=== PATIENT | female | born 1990 | race Hispanic/Latino ===

== ENCOUNTER 2017-08-21 18:49 | Emergency (ER) | payer OTHER ==
[2017-08-21 19:55] VITALS: O2SAT 100
[2017-08-21] MEDS ORDERED: Lidocaine 1% Inj (20ml) IJ ONE (20:17)
[2017-08-21] MEDS ORDERED: Tdap Vaccine 0.5 ml Vial (10-64 yrs) IM ONE ×2 (20:17→21:07)
[2017-08-21] MEDS ORDERED: Lidocaine 1% Inj (20ml) ONE (20:23)
--- NOTE | 2017-08-21 20:39 | ED PDOC ---
HPI: General Adult Time Seen by Provider: 08/21/17 19:58 Chief Complaint (Nursing): Abnormal Skin Integrity Chief Complaint (Provider): Abnormal Skin Integrity History Per: Patient History/Exam Limitations: no limitations Onset/Duration Of Symptoms: Hrs (prior to arrival) Current Symptoms Are (Timing): Still Present Additional Complaint(s): 27 year old female presents to the ED with left middle finger laceration that occurred earlier today during work. Patient reports that she accidentally cut her finger on a broken bottle of vodka. She has no other medical complaints. Tetanus is not UTD. PMD: Dr. Talley Past Medical History Reviewed: Historical Data, Nursing Documentation, Vital Signs Vital Signs: Last Vital Signs Temp 98.8 F 08/21/17 19:52 Pulse 75 08/21/17 19:52 Resp 16 08/21/17 19:52 BP 128/82 08/21/17 19:52 Pulse Ox 100 08/21/17 21:02 - Medical History PMH: No Chronic Diseases - Surgical History Surgical History: No Surg Hx - Family History Family History: States: Unknown Family Hx - Allergies Allergies/Adverse Reactions: Allergies Allergy/AdvReac Type Severity Reaction Status Date / Time No Known Allergies Allergy Verified 08/21/17 19:55 Review of Systems ROS Statement: Except As Marked, All Systems Reviewed And Found Negative Musculoskeletal: Positive for: Hand Pain (left middle finger laceration) Physical Exam - Reviewed Nursing Documentation Reviewed: Yes Vital Signs Reviewed: Yes - Physical Exam Extremity: Positive for: Normal ROM (full ROM actively of 3rd left digit with no active bleeding), Other (1 cm superifical laceration on palmar surface of distal phalanx of left third digit) - ECG O2 Sat by Pulse Oximetry: 100 (RA) Pulse Ox Interpretation: Normal Medical Decision Making Medical Decision Making: Time: 20:17 Impression: left 3rd digit laceration Initial Plan: --Tetanus .5 ml IM --Lidocaine 1% 3 ml IJ Scribe Attestation: Documented by Debbie Hi, acting as a scribe for Syed Washburn PA-C Provider Scribe Attestation: All medical record entries made by the Scribe were at my direction and personally dictated by me. I have reviewed the chart and agree that the record accurately reflects my personal performance of the history, physical exam, medical decision making, and the department course for this patient. I have also personally directed, reviewed, and agree with the discharge instructions and disposition. Procedures - Time-Out Type of Procedure: Laceration repair Site of Procedure: L 3rd digit Correct Patient (with visual ID + MR# on ID Band): Yes Correct Procedure: Yes Correct Site Marked: Yes RADU/Tech: Maddison - Laceration/Wound Repair laceration repair Wound Length (cm): 1 Wound's Depth, Shape: superficial, linear Wound Explored: clean Irrigated w/ Saline (ccs): 500 Betadine Prep?: Yes Anesthesia: 1% Lidocaine Volume Anesthetic (ccs): 3 Wound Debrided: minimal Wound Repaired With: Sutures Suture Size/Type: 5:0, proline Number of Sutures: 3 Wound Complexity: Simple Sterile Dressing Applied?: Yes Splint Applied?: Yes Disposition - Clinical Impression Clinical Impression: Finger laceration - Patient ED Disposition Is Patient to be Admitted: No - Disposition Referrals: [facility] [Outside] Disposition: Routine/Home Disposition Time: 21:01 Condition: STABLE Additional Instructions: Suture removal in 7-10 days Return to ED immediately if symptoms worsen Instructions: Laceration Repair With Stitches (DC) Forms: Boyd Plunkett (Persian) Print Language: SINHALA
[2017-08-21 22:49] VITALS: BP 110/70; PULSE 76; RESP 18; TEMP 98
== END 2017-08-21 22:48 | disposition home or self-care (01) ==
LOC: H.ER 18:49
DX: S61.213A Laceration without foreign body of left middle finger without damage to nail, initial encounter (principal); W25.XXXA Contact with sharp glass, initial encounter; Y99.0 Civilian activity done for income or pay; Z23 Encounter for immunization